=== PATIENT | female | born 1995 | race Caucasian/White ===

== ENCOUNTER 2019-02-27 09:55 | Emergency (ER) | payer OTHER ==
[~2019-02-27] VITALS: Ht 149.9 cm; Wt 41.3 kg
[~2019-02-27 09:55] MED LIST: HYDR-4011 PO; NAPR-985 PO; ONDA4TAB14 PO; SIME125C PO
[2019-02-27 10:15] VITALS: BP 139/94; PULSE 133; RESP 20; Ht 149.9 cm; Wt 41.3 kg
[2019-02-27] MEDS ORDERED: IOHEXOL 300MG/ML 150 ML BTL ONE (12:05)
[2019-02-27] MEDS ORDERED: SOD CHLORIDE 0.9% 100 ML ONE (12:05)
== END 2019-02-27 12:56 | disposition home or self-care (01) ==
LOC: FTE 09:55
DX: R10.84 Generalized abdominal pain (principal)
CPT/HCPCS: 36415; 74177; 80053; 81001; 81025; 83690; 85025; Q9967; Z7502; Z7610